=== PATIENT | male | born 1950 | race Caucasian/White ===

== ENCOUNTER → 2018-05-28 | Outpatient (CLI) | payer MEDICARE, BC ==
--- NOTE | 2018-05-28 15:54 | RADIOLOGY REPORT (SQ) ---
EXAM DESCRIPTION: MRI RT UPPER JOINT WITHOUT COMPLETED DATE/TIME: 05/28/2018 9:50 am REASON FOR STUDY: PAIN IN RIGHT WRIST (M25.531) M25.531 PAIN IN RIGHT WRIST COMPARISON: None. TECHNIQUE: Right wrist images acquired and stored on PACS. Multiplanar images include fat sensitive sequences as T1, fluid sensitive sequences as FST2/STIR, cartilage sensitive sequences as FSPD, grad ient echo sequences. LIMITATIONS: None. FINDINGS: BONE MARROW: Multiple areas cystic degenerative change in the carpal bones. No occult fra ctures. CARPAL ALIGNMENT AND ARTICULATION: Negative ulnar variance. Changes of the distal radioulnar suggest s prior fracture. EFFUSION: Joint effusion. Fluid in the distal radioulnar joint. SCAPHOLUNATE LIGAMENT: No definitive tear. LUNATE-TRIQUETRAL LIGAMENT: Intact without tear. TFC COMPLEX: There appears to be a tear of the ulnar attachment of the TFCC. EXTRINSIC LIGAMENTS AND DISTAL RADIO-ULNAR JOINT: Tear of the volar distal radioulnar ligament. 1-6 EXTENSOR COMPARTMENTS: Normal. Specifically no tendinopathy of the abductor pollicis longus or ex tensor pollicis brevis to suggest de Quervain's Syndrome. CARPAL TUNNEL AND MEDIAN NERVE: Normal volume and morphology of the carpal tunnel proximally at the l evel of the radiocarpal joint and distally at the hook of the hamate. No thickening or signal alterat ion of the median nerve. OTHER: No other significant finding. IMPRESSION: Tear of the ulnar attachment of the TFCC. Tear of the volar component of the distal rad ioulnar ligament. Degenerative changes of the distal radius and ulnar which appear to be secondary to prior fracture. There is negative ulnar variance. Cystic degenerative changes of multiple carpal bone. TECHNICAL DOCUMENTATION: JOB ID: [id number] [employer]- All Rights Reserved Reading location - IP/workstation name: [email or web address]
== END ==
LOC: RAD 09:01
PROVIDERS: ATTEND Physician Assistant
DX: M25.531 Pain in right wrist (principal); M19.031 Primary osteoarthritis, right wrist

== ENCOUNTER 2018-06-06 22:54 | Emergency (ER) | payer MEDICARE, BC ==
[2018-06-06] MEDS ORDERED: DIAZEPAM INJ 10 MG/2 ML DISP.SYRIN IV ONE (23:21)
--- NOTE | 2018-06-06 23:49 | RADIOLOGY REPORT (SQ) ---
EXAM DESCRIPTION: XR CHEST 2 VIEWS COMPLETED DATE/TME: 06/06/2018 23:21 CLINICAL HISTORY: 68 years, Male, pain Findings: The heart is mildly enlarged. Aorta is uncoiled. No consolidation or pleural effusion. No pulmonary edema or pneumothorax. IMPRESSION: No acute disease.
[2018-06-07 00:16] LABS: ABSOLUTE BASOPHILS # (AUTO) 0.1 10^3/uL (0.0-0.2); ABSOLUTE EOSINOPHILS # (AUTO) 0.2 10^3/uL (0.0-0.6); ABSOLUTE LYMPHOCYTES (AUTO) 1.8 10^3/uL (0.5-4.7); ABSOLUTE MONOCYTES (AUTO) 0.6 10^3/uL (0.1-1.4); ABSOLUTE NEUT (AUTO) 5.6 10^3/uL (1.7-8.2); BASOPHILS % (AUTO) 0.8 % (0-2); EOSINOPHILS % (AUTO) 2.6 % (0-6); HEMATOCRIT 53.1 % (37.9-51.0); HEMOGLOBIN 17.7 g/dL (13.5-17.0); LYMPHOCYTES % (AUTO) 21.4 % (13-45); MEAN CORPUSCULAR HEMOGLOBIN 29.6 pg (27.0-33.4); MEAN CORPUSCULAR HGB CONC 33.3 g/dL (32.0-36.0); MEAN CORPUSCULAR VOLUME 89 fl (80-97); MONOCYTES % (AUTO) 6.9 % (3-13); PLATELET COUNT 244 10^3/uL (150-450); RED BLOOD COUNT 5.96 10^6/uL (4.35-5.55); RED CELL DISTRIBUTION WIDTH 15.3 % (11.5-14.0); SEGMENTED NEUTROPHILS % (AUTO) 68.3 % (42-78); TOTAL CELLS COUNTED % (AUTO) 100 %; WHITE BLOOD COUNT 8.3 10^3/uL (4.0-10.5)
[2018-06-07 00:32] LABS: ALANINE AMINOTRANSFERASE 34 U/L (21-72); ALBUMIN 4.6 g/dL (3.5-5.0); ALKALINE PHOSPHATASE 76 U/L (38-126); ANION GAP 12 (5-19); ASPARTATE AMINO TRANSFERASE 23 U/L (17-59); BILIRUBIN,DIRECT 0.2 mg/dL (0.0-0.4); BILIRUBIN,TOTAL 0.4 mg/dL (0.2-1.3); BLOOD UREA NITROGEN 19 mg/dL (7-20); CALCIUM 10.2 mg/dL (8.4-10.2); CARBON DIOXIDE 27 mmol/L (22-30); CHLORIDE 101 mmol/L (98-107); CREATINE KINASE 81 U/L (55-170); GLUCOSE 136 mg/dL (75-110); POTASSIUM 4.7 mmol/L (3.6-5.0); SODIUM 140.1 mmol/L (137-145)
[2018-06-07 00:39] LABS: INTERNATIONAL RATION (INR) 0.92; PROTHROMBIN TIME 12.8 SEC (11.4-15.4)
[2018-06-07 00:46] LABS: TROPONIN I < 0.012 ng/mL
--- NOTE | 2018-06-07 00:51 | RADIOLOGY REPORT (SQ) ---
EXAM DESCRIPTION: CT HEAD WITHOUT IV CONTRAST COMPLETED DATE/TME: 06/06/2018 23:21 CLINICAL HISTORY: 68 years, Male, sudden sharp pain L side of neck that shot to L Frontal brain. COMPARISON: None. TECHNIQUE: 210 Images stored on PACS. All CT scanners at this facility use dose modulation, iterative reconstruction, and/or weight based dosing when appropriate to reduce radiation dose to as low as reasonably achievable (ALARA). [facility]: Dose Right [facility]: CareDose [facility]: Dose Right [facility]: Teradose 4D [facility]: [employer] LIMITATIONS: None. FINDINGS: The globes are intact. The paranasal sinuses and mastoid air cells are unremarkable. No displaced or depressed skull fracture. No intra or extra-axial hemorrhage. CT is limited for evaluation of acute infarct. No CT evidence for large or territorial acute infarct. No mass or midline shift. Mild age-appropriate atrophy. IMPRESSION: Negative for acute intracranial abnormality TECHNICAL DOCUMENTATION: Quality ID # [id number]: Final reports with documentation of one or more dose reduction techniques (e.g., Automated exposure control, adjustment of the mA and/or kV according to patient size, use of iterative reconstruction technique) copyright 2010 [employer]- All Rights Reserved
[2018-06-07] MEDS ORDERED: NORMAL SALINE 1000 ML 1,000 ML IV ONE (01:09)
--- NOTE | 2018-06-07 02:04 | ER Document Report ---
ED General - General Chief Complaint: Dizziness Stated Complaint: NECK PAIN Time Seen by Provider: 06/06/18 23:19 TRAVEL OUTSIDE OF THE [place] IN LAST 30 DAYS: No - HPI Patient complains to provider of: Neck pain Notes: Patient coming in for evaluation of neck pain. Patient states started just prior to arrival. Patient states he was watching basketball when the neck pain occurred. Patient states he was on the left side of his neck originating around the top of his chest around the collarbone region. states that when the patient is into her had his head turned down looking (patient did state he was difficult to move his head to the right. Patient denies any history of trauma patient states the pain did radiate up his neck to the back of his head and into the frontal region. Patient states he does have a history of tension headaches however this was different as tension headaches in the past. Patient does have a history of hypertension states he has been compliant with his medications however did not take his nighttime medication. Patient denies fevers chills nausea vomiting diarrhea denies any substernal chest pain abdominal pain - Related Data Allergies/Adverse Reactions: No Known Allergies Allergy (Unverified 04/06/17 23:02) Past Medical History - Social History Smoking Status: Never Smoker Family History: Reviewed & Not Pertinent Patient has suicidal ideation: No Patient has homicidal ideation: No - Past Medical History Cardiac Medical History: Reports: Hx Hypertension - on medication Renal/ Medical History: Denies: Hx Peritoneal Dialysis Past Surgical History: Reports: Hx Cholecystectomy, Hx Orthopedic Surgery - L knee replacement Review of Systems - Review of Systems Constitutional: No symptoms reported EENT: Other - Neck pain Cardiovascular: No symptoms reported Respiratory: No symptoms reported Gastrointestinal: No symptoms reported Genitourinary: No symptoms reported Male Genitourinary: No symptoms reported Musculoskeletal: No symptoms reported Skin: No symptoms reported Hematologic/Lymphatic: No symptoms reported Neurological/Psychological: No symptoms reported -: Yes All other systems reviewed and negative Physical Exam - Vital signs Vitals: Temp Pulse Resp BP Pulse Ox 98.1 F 77 20 176/93 H 95 06/06/18 23:00 06/06/18 23:00 06/06/18 23:00 06/06/18 23:00 06/06/18 23:00 Interpretation: Normal - General General appearance: Appears well, Alert - HEENT Head: Normocephalic, Atraumatic Eyes: Normal Conjunctiva: Normal Cornea: Normal Pupils: PERRL Neck: Other - No bruits no signs of swelling. Patient does have slight reproduction of her symptoms upon turning his head to the right - Respiratory Respiratory status: No respiratory distress Chest status: Nontender Breath sounds: Normal Chest palpation: Normal - Cardiovascular Rhythm: Regular Heart sounds: Normal auscultation Murmur: No - Abdominal Inspection: Normal Distension: No distension Bowel sounds: Normal Tenderness: Nontender Organomegaly: No organomegaly - Back Back: Normal, Nontender - Extremities General upper extremity: Normal inspection, Nontender, Normal color, Normal ROM, Normal temperature General lower extremity: Normal inspection, Nontender, Normal color, Normal ROM, Normal temperature, Normal weight bearing. No: Tello's sign - Neurological Neuro grossly intact: Yes Cognition: Normal Orientation: AAOx4 Zayra Coma Scale Eye Opening: Spontaneous [place] Coma Scale Verbal: Oriented [place] Coma Scale Motor: Obeys Commands [place] Coma Scale Total: 15 Speech: Normal Motor strength normal: LUE, RUE, LLE, RLE Sensory: Normal - Psychological Associated symptoms: Normal affect, Normal mood - Skin Skin Temperature: Warm Skin Moisture: Dry Skin Color: Normal Course - Re-evaluation Re-evalutation: 06/07/18 03:50 Laboratory studies show hemoconcentration more likely consistent with slight dehydration as the patient upon further questioning states that he may have not drink enough water today. Otherwise head CT is negative chest x-ray is negative EKG troponins not sure limits of the any signs of cardiac pathology possible etiology is a torticollis or spasm of the SCM muscle patient with total resolution of the symptoms with a dose of Valium patient was encouraged to drink plenty of fluids return to ER symptoms worsen follow-up with primary care physician. Prescription for that I will be given to the patient. - Vital Signs Vital signs: Temp Pulse Resp BP Pulse Ox 98.2 F 77 16 154/97 H 94 06/07/18 02:49 06/06/18 23:00 06/07/18 02:01 06/07/18 02:01 06/07/18 02:01 - Laboratory Result Diagrams: 06/07/18 00:03 06/07/18 00:03 Laboratory results interpreted by me: 06/07/18 06/07/18 00:03 00:03 RBC 5.96 H Hgb 17.7 H Hct 53.1 H RDW 15.3 H Glucose 136 H Discharge - Discharge Clinical Impression: Neck pain Condition: Good Disposition: HOME, SELF-CARE Instructions: Torticollis ([facility]) Additional Instructions: Your evaluation today is consistent with more likely muscle spasm possibly torticollis spasm of specific muscle in the neck causing issues. Your head CT chest x-ray laboratory studies EKG does show any worrisome pathology recommended we continue treatment with low-dose Valium no erythema your lab work does show was signs of dehydration please make sure you are drinking plenty of fluids. Return to ER symptoms worsen. Prescriptions: Diazepam [Valium 2 mg Tablet] 2 mg PO Q6HP PRN #10 tablet PRN Reason: Referrals: FELTON CLEARY MD [Primary Care Provider] - Follow up as needed
[2018-06-07 02:38] VITALS: BP 154/97
--- NOTE | 2018-06-07 07:47 | EKG REPORT ---
SEVERITY:- BORDERLINE ECG - SINUS RHYTHM BORDERLINE T ABNORMALITIES, INFERIOR LEADS : Confirmed by: Gavin Jo MD 07-Jun-2018 07:47:07
== END 2018-06-07 02:49 | disposition home or self-care (01) ==
LOC: ER 22:54
DX: M54.2 Cervicalgia (principal); R51 Headache; R07.9 Chest pain, unspecified; I10 Essential (primary) hypertension; Z79.899 Other long term (current) drug therapy
CPT/HCPCS: 93005; 99284; 96374; 36415; 82553; 82550; 83690; 83735; 85025; 85610; 80053; 84484; 71046; 70450; 93010; J3360

== ENCOUNTER → 2020-02-04 | Outpatient (CLI) | payer MEDICARE, BC ==
--- NOTE | 2020-02-04 15:14 | RADIOLOGY REPORT (SQ) ---
EXAM DESCRIPTION: MRI RT UPPER JOINT WITHOUT IMAGES COMPLETED DATE/TIME: 02/04/2020 2:13 pm REASON FOR STUDY: M25.511 PAIN IN RIGHT SHOULDER M25.511 PAIN IN RIGHT SHOULDER COMPARISON: None. TECHNIQUE: Right shoulder images acquired and stored on PACS. Multiplanar imaging to include fat sen sitive sequences such as T1, water sensitive sequences such as FST2/STIR, cartilage sensitive sequenc es such as FSPD/gradient-echo sequences. LIMITATIONS: Motion artifact. FINDINGS: BONE MARROW AND CORTEX: No worrisome bone lesions or marrow replacement. No occult fractur es. JOINT OR BURSAL EFFUSION: No significant joint or bursal fluid. No suggestion of loose bodies. GLENO-HUMERAL ARTICULATION: Intact. 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 ROTATOR CUFF AND INTERVAL: Tendinosis and partial thickness intrasubstance tear supraspinatus and sub scapularis. No rotator interval tear. No rotator interval thickening to suggest adhesive capsulitis. LABRUM AND BICEPS LABRAL COMPLEX: Intact as visualized. REMAINDER OF LABRUM AND IGHL : Intact as visualized. PERIARTICULAR AND ADJACENT SOFT TISSUES: No masses or abnormal nodes. OTHER: No other significant finding. IMPRESSION: 1. Limitations due to motion. Tendinosis and partial-thickness intrasubstance tears of the supraspin atus and subscapularis. 2. Os acromiale. AC joint arthropathy. TECHNICAL DOCUMENTATION: JOB ID: [id number] 2010 [employer]- All Rights Reserved Reading location - IP/workstation name: [email or web address]
== END ==
LOC: RAD 13:24
PROVIDERS: ATTEND Physician Assistant
DX: M25.511 Pain in right shoulder (principal)